=== PATIENT | female | born 2000 | race Caucasian/White ===

== ENCOUNTER 2019-01-04 09:30 | Inpatient (IN) ==
[2019-01-04] MEDS ORDERED: SODIUM CHLORIDE 0.9% 1000ML 1,000 ML IV ONE (09:55)
--- NOTE | 2019-01-04 10:13 | Emergency Department Note ---
Entered by Tera Jaeger acting as a scribe for History of Present Illness General Chief complaint: Hyperglycemia Stated complaint: TYPE 1 DIABETIC-SHAKY,VOMITNG,DRY MOUTH Time Seen by Provider: 01/04/19 09:43 Source: patient History of Present Illness Provider complaint: Hyperglycemia Onset (ago): day(s) 1 Location: abdomen Severity: similar to prior episodes Pain Consistency: + other (Episodic) Maximum Pain Intensity: 0 Relieved By: + none Exacerbated By: + none Associated symptoms: + nausea/vomiting and + other (Dry mouth); no fever/chills The patient is a 18 year old female who presents to the Emergency Room with complaints of a hyperglycemic episode that occurred this morning when the patient woke up. The patient is a type 1 diabetic and her tubing was kinked last night for about 5 hours resulting in her not receiving adequate insulin for that time. When she first woke up this morning her sugar was 560 but after she fixed her tubing her sugars came down to 460. The patient states she set up her bolus wizard based on her blood sugar but her pump read "no active insulin" so she never received the dosage. The patient currently has a dry mouth and has been vomiting anything she tries to drink today. She denies any fevers or back pain. She notes that she got her period 2 weeks early, but contributes it to stress from finals week. Home Medications Home Medications Medication Instructions Recorded Confirmed Type aspirin 325 mg PO UD 01/04/19 01/04/19 History cholecalciferol (vitamin D3) 0 unit PO HS 01/04/19 01/04/19 History [Vitamin D3] doxycycline hyclate 100 mg PO BID 01/04/19 01/04/19 History insulin aspart U-100 [Novolog 0 unit CONTINUOUS SUBCUTANEOUS 01/04/19 01/04/19 History U-100 Insulin aspart] INFUSION .PUMP levothyroxine 50 mcg PO QAM 01/04/19 01/04/19 History multivitamin 1 tab PO HS 01/04/19 01/04/19 History Allergies Allergy/AdvReac Type Severity Reaction Status Date / Time No Known Allergies Allergy Unverified 01/04/19 11:34 Past Med/Surg History Medical History Acne Hypothyroidism Type 1 diabetes mellitus Social History Preferred Language: [place] Islander Communication Ability: Effective [employer]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 and A total of 10 systems reviewed and were otherwise negative Physical Exam Vital Signs Vital Signs - 24 hr 01/04/19 09:33 01/04/19 13:04 Temperature 37.0 C Temperature Source Oral Sepsis Recent Fever Within 48 Hours No Sepsis New/Unexplained Change in Mental Status No Sepsis Action Taken by Nursing No Action Required Pulse Rate 127 H Pulse Rate [Left Finger] 110 H Respiratory Rate 17 18 Respiratory Effort / Characteristics Non-Labored Respiratory Depth Normal Normal Respiratory Pattern Regular Blood Pressure 148/94 H Blood Pressure [Left Arm] 155/92 H Blood Pressure Mean 112 Blood Pressure Mean [Left Arm] 113 Blood Pressure Position Sitting Pulse Oximetry 97 100 Oxygen Delivery Method Room Air Room Air General: Non-ill appearing young female in no acute distress. HEENT: Normal cephalic atraumatic. Pupils are equal round and reactive to li ght. Extraocular movements are intact. Oropharynx is pink with moist mucous membranes. No swelling of the mouth lips or tongue. Neck: Supple with a midline trachea. No meningeal signs or stiffness, no JVD or bruits. No Stridor. Chest: Clear to auscultation bilaterally. No wheezes or rhonchi. No increased work of breathing. Heart: regular rate and rhythm. Abdomen: Soft nontender, nondistended without rebound guarding or rigidity. Insulin pump sites on the right and left. Left one is new. Extremities: No cyanosis clubbing or edema. No calf tenderness or assymetry Spine/Back. Non tender to palpation. No CVA tenderness Skin: Good turgor without rashes. Neurologic exam: Cranial nerves two through 12 are intact. Motor and sensation are intact and symmetrical throughout. Course 0945: The patient was evaluated in room B04B, and a complete history and physical examination were performed. 1025: I checked on the patient and she was just getting her IV placed. 1128: I spoke to Dr. Felder - [facility] Hospitalist about the patient case and he is going to evaluate her. 1205: I spoke to the patient and her mother about the situation. They are now willing to have the patient admitted. Dr. Felder is going to accept her for further evaluation. Consultations Consultation #1: I spoke to Dr. Felder - [facility] Hospitalist about the patient case and he is going to evaluate her. Time: 11:28 Administered Medications Discontinued Medications Sodium Chloride (Nss 1000ml) 1,000 mls @ 999 mls/hr IV .Q1H1M ONE Stop: 01/04/19 10:55 Last Infusion: 01/04/19 12:15 Dose: 0 mls/hr Documented by: [id number] Admin: 01/04/19 10:32 Dose: 999 mls/hr Documented by: [id number] Sodium Chloride (Nss 1000ml) 1,000 mls @ 500 mls/hr IV .Q2H SUZETTE Stop: 01/04/19 13:59 Last Admin: 01/04/19 12:16 Dose: 500 mls/hr Documented by: [id number] Ondansetron HCl (Zofran) 4 mg IV NOW STA Stop: 01/04/19 10:42 Last Admin: 01/04/19 10:57 Dose: 4 mg Documented by: [id number] Medical Decision Making Differential Diagnosis Differential Diagonsis: Hyperglycemia, DKA, Electrolyte abnormality, and Metabolic abnormality, amongst others. Medical Records Attestation: I reviewed the patient's medical records. Home Medications Current Medication List: was personally reviewed by me Laboratory Data Attestation: I reviewed the patient's lab results. Result diagrams: 01/04/19 10:33 01/04/19 10:33 Lab Results 01/04/19 01/04/19 01/04/19 Range/Units 09:37 10:33 10:33 WBC 16.82 H (4.8-10.8) K/uL RBC 5.08 (4.2-5.4) M/uL Hgb 15.9 (12.0-16.0) g/dL Hct 43.9 (37-47) % MCV 86.4 (80-100) fL MCH 31.3 (25-34) pg MCHC 36.2 H (32-36) g/dL RDW Std Deviation 37.6 (36.4-46.3) fL RDW Coeff of Yuly 11.8 (11.5-14.5) % Plt Count 362 (130-400) K/uL MPV 9.8 (7.4-10.4) fL Immature Gran % (Auto) 0.3 % Neut % (Auto) 88.7 % Lymph % (Auto) 8.2 % [place] % (Auto) 2.6 % Eos % (Auto) 0.0 % Baso % (Auto) 0.2 % Immature Gran # (Auto) 0.05 H (0.00-0.02) K/uL Neut # (Auto) 14.92 H (1.4-6.5) K/uL Lymph # (Auto) 1.38 (1.2-3.4) K/uL [place] # (Auto) 0.44 (0.11-0.59) K/uL Eos # (Auto) 0.00 (0-0.5) K/uL Baso # (Auto) 0.03 (0-0.2) K/uL Sodium 137 (136-145) mmol/L Potassium 4.1 (3.5-5.1) mmol/L Chloride 104 (98-107) mmol/L Carbon Dioxide 12 L (21-32) mmol/L Anion Gap 22.0 H (3-11) BUN 16 (7-18) mg/dl Creatinine 1.07 (0.6-1.2) mg/dl Est Cr Clr Drug Dosing 76.0 ml/min Est GFR ( Amer) 86.5 Est GFR (Non-Af Amer) 74.7 BUN/Creatinine Ratio 15.0 (10-20) Glucose 363 H* (70-99) mg/dl POC Glucose 411 H* (70-99) Calcium 9.8 (8.5-10.1) mg/dl Total Bilirubin 0.6 (0.2-1) mg/dl AST 74 H (15-37) U/L ALT 73 (12-78) U/L Alkaline Phosphatase 192 H (45-117) U/L Total Protein 8.9 H (6.4-8.2) gm/dl Albumin 4.7 (3.4-5.0) gm/dl Globulin 4.2 H (2.5-4.0) gm/dl Albumin/Globulin Ratio 1.1 (0.9-2) Beta-Hydroxybutyric Acd 59.19 H (0.2-2.81) mg/dl HCG, Qual (Negative) 01/04/19 01/04/19 Range/Units 10:33 12:48 WBC (4.8-10.8) K/uL RBC (4.2-5.4) M/uL Hgb (12.0-16.0) g/dL Hct (37-47) % MCV (80-100) fL MCH (25-34) pg MCHC (32-36) g/dL RDW Std Deviation (36.4-46.3) fL RDW Coeff of Yuyl (11.5-14.5) % Plt Count (130-400) K/uL MPV (7.4-10.4) fL Immature Gran % (Auto) % Neut % (Auto) % Lymph % (Auto) % [place] % (Auto) % Eos % (Auto) % Baso % (Auto) % Immature Gran # (Auto) (0.00-0.02) K/uL Neut # (Auto) (1.4-6.5) K/uL Lymph # (Auto) (1.2-3.4) K/uL [place] # (Auto) (0.11-0.59) K/uL Eos # (Auto) (0-0.5) K/uL Baso # (Auto) (0-0.2) K/uL Sodium (136-145) mmol/L Potassium (3.5-5.1) mmol/L Chloride (98-107) mmol/L Carbon Dioxide (21-32) mmol/L Anion Gap (3-11) BUN (7-18) mg/dl Creatinine (0.6-1.2) mg/dl Est Cr Clr Drug Dosing ml/min Est GFR ( Amer) Est GFR (Non-Af Amer) BUN/Creatinine Ratio (10-20) Glucose (70-99) mg/dl POC Glucose 226 H (70-99) Calcium (8.5-10.1) mg/dl Total Bilirubin (0.2-1) mg/dl AST (15-37) U/L ALT (12-78) U/L Alkaline Phosphatase (45-117) U/L Total Protein (6.4-8.2) gm/dl Albumin (3.4-5.0) gm/dl Globulin (2.5-4.0) gm/dl Albumin/Globulin Ratio (0.9-2) Beta-Hydroxybutyric Acd (0.2-2.81) mg/dl HCG, Qual Negative (Negative) Blood Pressure Blood Pressure Findings: Elevated blood pressure Blood Pressure Disposition: further management by hospitalist MDM Narrative This patient comes in as described above. She is a type I diabetic and has a insulin pump. Last night her pump got kinked and her sugar went high it was not functioning for about 5 hours she put a new site in today and her basal rates go and she thought she gave herself a bolus but on her pump it says there is 0 units of active insulin her blood sugar was 411 here. She did give herself a bolus after putting this in her bolus wizard. IV access established was hydrated normal saline and multiple blood testing was obtained. She was reassessed frequently. She did have a fair amount of nausea and was given Zofran. She is feeling a lot better after having 1 L normal saline bolus. I was concerned however that she does have a low CO2 and anion gap and was found to be in DKA. I do think she needs to be observed overnight and have gentle hydration. I have consulted Dr. Felder who saw the patient ER and will admit/observe her for these measures. Impression & Plan DKA (diabetic ketoacidoses), Hyperglycemia, Vomiting Discharge Plan Visit Data Chief Complaint: Hyperglycemia Stated Complaint: TYPE 1 DIABETIC-SHAKY,VOMITNG,DRY MOUTH ED Provider: Manuel Saba Discharge Problem: DKA (diabetic ketoacidoses), Hyperglycemia, Vomiting Patient Disposition: Being Evaluated by Hospitalist Discharge Instructions Interventions: ED Discharge Assessment Last Done: 01/04/19 13:34 Forms Stand Alone Forms: [facility] Prescriptions Prescriptions: No Action multivitamin Tablet 1 tab PO HS RF: 0 aspirin 325 mg Tablet 325 mg PO UD RF: 0 Novolog U-100 Insulin aspart 100 unit/mL solution continuous subcutaneous infusion .PUMP RF: 0 levothyroxine 50 mcg tablet 50 mcg PO QAM RF: 0 doxycycline hyclate 100 mg tablet 100 mg PO BID RF: 0 cholecalciferol (vitamin D3) [Vitamin D3] 1,000 unit Capsule PO HS RF: 0 Referrals Referrals: PCP,NO [Primary Care Provider] - Discharge Problem: DKA (diabetic ketoacidoses) Qualifiers: Diabetes mellitus type: type 1 Diabetes mellitus complication detail: without coma Qualified Code(s): E10.10 - Type 1 diabetes mellitus with ketoacidosis without coma Vomiting Qualifiers: Vomiting type: unspecified Vomiting Intractability: non-intractable Nausea presence: with nausea Qualified Code(s): R11.2 - Nausea with vomiting, unspecified The scribe's documentation has been prepared under my direction and personally reviewed by me in its entirety. I confirm that the note above accurately reflects all work, treatment, procedures, and medical decision making performed by me.
[2019-01-04 10:41] LABS: Hematocrit (blood only) 43.9 % (37-47); Hemoglobin 15.9 g/dL (12.0-16.0); Mean Corpuscular Hgb Conc 36.2 g/dL (32-36); Mean Corpuscular Volume 86.4 fL (80-100); Mean Platelet Volume 9.8 fL (7.4-10.4); Platelet Count 362 K/uL (130-400); RDW Coefficient of Variation 11.8 % (11.5-14.5); RDW Standard Deviation 37.6 fL (36.4-46.3); Red Blood Count 5.08 M/uL (4.2-5.4); White Blood Count 16.82 K/uL (4.8-10.8)
[2019-01-04] MEDS ORDERED: ONDANSETRON INJ 2 MG/ML 2 ML VIAL IV STA (10:41)
[2019-01-04 10:59] LABS: Basophils # (auto) 0.03 K/uL (0-0.2); Basophils % (auto) 0.2 %; Immature Granulocytes # (auto) 0.05 K/uL (0.00-0.02); Immature Granulocytes % (auto) 0.3 %; Lymphocytes # (auto) 1.38 K/uL (1.2-3.4); Lymphocytes % (auto) 8.2 %; Monocytes # (auto) 0.44 K/uL (0.11-0.59); Monocytes % (auto) 2.6 %; Neutrophils # (auto) 14.92 K/uL (1.4-6.5); Neutrophils % (auto) 88.7 %
[2019-01-04 11:06] LABS: Albumin Globulin Ratio 1.1 (0.9-2); Albumin Level 4.7 gm/dl (3.4-5.0); Bilirubin,Total 0.6 mg/dl (0.2-1); Calcium 9.8 mg/dl (8.5-10.1); Est GFR (African American) 86.5; Est GFR (Non-African American) 74.7; Globulin 4.2 gm/dl (2.5-4.0); Potassium 4.1 mmol/L (3.5-5.1); Total Protein 8.9 gm/dl (6.4-8.2)
[2019-01-04 11:16] LABS: Pregnancy Test, Serum Negative (Negative)
[2019-01-04 11:44] LABS: Beta-Hydroxybutyrate 59.19 mg/dl (0.2-2.81)
[2019-01-04] MEDS ORDERED: SODIUM CHLORIDE 0.9% 1000ML 1,000 ML IV SCH ×2 (12:00→14:28)
--- NOTE | 2019-01-04 12:52 | History & Physical Report ---
Date of Service January 04, 2019 Assessment & Plan (1) Type 1 diabetes mellitus: Patient presented in DKA with an anion gap of 22 bicarb of 12 and beta hydroxybutyric acid of 59.. This appears to work with the patient working to continue her basal rate on her insulin pump have a correction factor by subcutaneous insulin continue hydration and follow her electrolytes and blood glucoses carefully. If you can close her gap without instituting a formal insulin drip we will do that. Certainly need to watch her anion gap with regard to the need for dextrose infusion and also watch her potassium as shift will occur after her acidosis corrects. Patient is agreeable to this as she was trying to avoid hospital stay at all cost. I personally spoke to the glycemic pharmacist for 10 to 15 minutes to try to determine a plan of care and will be a glycemic pharmacist at her nursing unit which she is will be apprised of the situation and continue to aggressively monitor with every 2 hours glucose checks and either acute 2 to 4-hour chemistry checks (2) Hypothyroidism: Maintaining her Synthroid at 50 mg a day (3) Acne: We are currently holding her doxycycline given causes some stomach upset but this can be resumed when she is released History of Present Illness Primary Care Provider: NO PCP 18-year-old female presents with nausea vomiting abdominal pain. She is a type I diabetic. She noticed that her insulin pump site become dislodged overnight. She replaced the pump site this morning however she presented with the above symptoms. She has a glucose of 400 she is an acidosis with anion gap of 22 and a bicarb of 12. In the ER there is prolonged discussion between myself and her mother the ER doctor regarding whether she should come into the hospital or not initially she refused to come in the hospital now she is in agreement to come to the hospital. Probable the 45 minutes were spent in various discussions regarding this prior to even writing any admitting orders. Decision will be to have her brought into our facility keep her on her basal rate which is 0.975 units an hour. We will employ sliding scale with correction factor of 40/140 and her carb ratio of 8 with every 2 hour blood glucose checks. Currently in the process of drawing an additional electrolyte panel. She will be hydrated with normal saline at this point in time and she did receive 1.5 L of fluid in the ER. Allergies Allergy/AdvReac Type Severity Reaction Status Date / Time No Known Allergies Allergy Unverified 01/04/19 11:34 Home Medications Home Medications Medication Instructions Recorded Confirmed Type aspirin 325 mg PO UD 01/04/19 01/04/19 History cholecalciferol (vitamin D3) 0 unit PO HS 01/04/19 01/04/19 History [Vitamin D3] doxycycline hyclate 100 mg PO BID 01/04/19 01/04/19 History insulin aspart U-100 [Novolog 0 unit CONTINUOUS SUBCUTANEOUS 01/04/19 01/04/19 History U-100 Insulin aspart] INFUSION .PUMP levothyroxine 50 mcg PO QAM 01/04/19 01/04/19 History multivitamin 1 tab PO HS 01/04/19 01/04/19 History Past Med/Surg History Medical History Acne Hypothyroidism Type 1 diabetes mellitus Social History Preferred Language: Martiniquais Feels Safe at Home: Yes Smoking Status: Never smoker Hx Alcohol Use: Yes (occasional) Hx Substance Use: Yes Review of Systems Review of Systems: ROS: well nourished well developed. No double vision blurry vision No problems with speech or swallowing No palpitations, chest pain or pressure No Wheezing or breathing issues Abdominal pain diffuse nausea and vomiting no diarrhea No burning urine urine frequency or changes in color No focal joint pain or muscle pain No skin rashes or oral lesions, is treated for acne No unusual bruising or bleeding No focused back pain or numbness or loss of strength No changes in memory or confusion Physical Exam Physical Exam: The patient appeared well nourished and normally developed. Vital signs as documented. Head exam is unremarkable. normocephalic, atraumatic Neck is without jugular venous distension, thyromegaly, or lymphademopathy Lungs are clear to auscultation and percussion. Cardiac exam reveals Rhythm is regular. First and second heart sounds normal. Abdominal exam reveals normal bowel sounds, no masses, no organomegaly Extremities are nonedematous and both pedal pulses are present Neurologic exam is A&Ox3, no focal deficits, strength is equal bilateral Psychologically seems neither anxious or depressed Skin is warm Dry without bruises as a faint acne on her face Of note her exam is benign this is after she is been fluid resuscitated and her insulin pump is been in place Results & Data Vital Signs (Past 12 Hours) Vital Signs Temp Pulse Resp BP Pulse Ox 01/04/19 09:33 37.0 C 127 H 17 148/94 H 97
[2019-01-04] MEDS ORDERED: ONDANSETRON INJ 2 MG/ML 2 ML VIAL IV PRN (14:28)
[2019-01-04] MEDS ORDERED: NON-FORMULARY MEDICATION (Insulin Aspart U-100 0 UNITS) continuous subcutaneous infusion SCH (14:28)
[2019-01-04] MEDS ORDERED: ACETAMINOPHEN 325 MG TAB PO PRN (14:28)
[2019-01-04] MEDS ORDERED: PHARMACY GLYCEMIC MGMT CONSULT PRN (14:37)
[2019-01-04] MEDS ORDERED: DEXTROSE 50% 50 ML SYRINGE IV PRN (14:45)
[2019-01-04] MEDS ORDERED: GLUCOSE 40% GEL 15 GM TUBE PO PRN (14:45)
[2019-01-04] MEDS ORDERED: GLUCAGON FOR INJ 1 MG VIAL IM PRN (14:45)
[2019-01-04] MEDS ORDERED: GLUCOSE 10 TABS/TUBE PO PRN (14:45)
[2019-01-04] MEDS ORDERED: CARBOHYDRATES FOR HYPOGLYCEMIA PO PRN (14:45)
[2019-01-04 15:31] LABS: Calcium 8.5 mg/dl (8.5-10.1); Creatinine Clr Calc Pharmacy 99.2 ml/min; Est GFR (African American) 119.4; Potassium 4.4 mmol/L (3.5-5.1)
[2019-01-04] MEDS ORDERED: NORMOSOL-R 1,000 ML IV SCH (16:00)
[2019-01-04] MEDS: INSULIN ASPART 100 UNITS/ML 3 ML PEN SC SCH ×2 (17:00→20:18)
[2019-01-04] MEDS: NovoLOG INSULIN PUMP SCH ×2 (17:00→20:19)
--- NOTE | 2019-01-04 19:23 | Discharge Summary ---
Date of Service January 04, 2019 Admission HPI Per Admitting Provider 18-year-old female presents with nausea vomiting abdominal pain. She is a type I diabetic. She noticed that her insulin pump site become dislodged overnight. She replaced the pump site this morning however she presented with the above symptoms. She has a glucose of 400 she is an acidosis with anion gap of 22 and a bicarb of 12. In the ER there is prolonged discussion between myself and her mother the ER doctor regarding whether she should come into the hospital or not initially she refused to come in the hospital now she is in agreement to come to the hospital. Probable the 45 minutes were spent in various discussions regarding this prior to even writing any admitting orders. Decision will be to have her brought into our facility keep her on her basal rate which is 0.975 units an hour. We will employ sliding scale with correction factor of 40/140 and her carb ratio of 8 with every 2 hour blood glucose checks. Currently in the process of drawing an additional electrolyte panel. She will be hydrated with normal saline at this point in time and she did receive 1.5 L of fluid in the ER. Principal Diagnosis Diabetic ketoacidosis Discharge Exam I reevaluated the patient in the evening approximately 7 PM she was in good condition and on gap has closed, she is eating dinner to be discharged in the c ompany of her mother Constitutional well developed and average body habitus Eyes no conjunctival abnormality and no scleral abnormality Neck normal visual inspection and trachea midline Respiratory normal respiratory effort; no respiratory distress Auscultation: lungs clear to auscultation bilaterally Cardiovascular RRR, no murmur, no edema Gastrointestinal (Abdomen) normal bowel sounds, soft, nontender, no hepatosplenomegaly Musculoskeletal no cyanosis or clubbing, extremities motor strength 5/5 Discharge Data Allergies Allergy/AdvReac Type Severity Reaction Status Date / Time No Known Allergies Allergy Unverified 01/04/19 11:34 Consultations 01/04/19 11:28 ED Decision to Admit Stat 01/04/19 14:28 Consult Case Management - Discharge Planning Routine Hospital Course (1) Type 1 diabetes mellitus: Patient presented in DKA with an anion gap of 22 bicarb of 12 and beta hydroxybutyric acid of 59.. I personally spoke to the glycemic pharmacist for 10 to 15 minutes to try to determine a plan of care and will be a glycemic pharmacist at her nursing unit which she is will be apprised of the situation and continue to aggressively monitor with every 2 hours glucose checks and either acute 2 to 4-hour chemistry checks Closed anion gap and reinstituted her pump with her tract infection ratio she is doing quite well she will be discharged in company of her family (2) Hypothyroidism: Maintaining her Synthroid at 50 mg a day (3) Acne: We are currently holding her doxycycline given causes some stomach upset but this can be resumed when she is released Total Time Total Time Spent Total Time Spent (In Minutes): Less than 30 minutes was used to discharge this patient Discharge Plan Discharge Items Patient Disposition: Home - Self-Care Reason For Visit: DKA Discharge Diagnosis: DKA Discharge Goals: Improve disease control Activity: Resume your previous activity Non-emergency contact: Primary Care Provider Call non-emergency contact if: you have any medication questions Follow-up/Referrals: PCP,NO [Primary Care Provider] - Diet: Carb Count or DM1 Addtl Provider Instructions: please check you blood glucose and assure your pump is attached and functional Prescriptions: Continued multivitamin Tablet 1 tab PO HS RF: 0 aspirin 325 mg Tablet 325 mg PO UD RF: 0 Novolog U-100 Insulin aspart 100 unit/mL solution continuous subcutaneous infusion .PUMP RF: 0 levothyroxine 50 mcg tablet 50 mcg PO QAM RF: 0 doxycycline hyclate 100 mg tablet 100 mg PO BID RF: 0 cholecalciferol (vitamin D3) [Vitamin D3] 1,000 unit Capsule PO HS RF: 0 Stand-Alone Forms: [facility] Discharge Orders: Discharge Order (Routine); Ordered 01/04/19 Ordered By: Benjamin Felder Admission Data Admit Date/Time: 01/04/19 12:38 Attending Provider: Benjamin Felder Admit Provider: Benjamin Felder Primary Care Provider: PCP,NO Other Providers: Benjamin Felder Service: Telemetry
[2019-01-04] MEDS ORDERED: MULTIVITAMIN TAB PO SCH (21:00)
[2019-01-05] MEDS ORDERED: LEVOTHYROXINE SODIUM 50 MCG TABLET PO SCH (06:30)
== END 2019-01-04 21:46 | disposition home or self-care (01) | DRG 919 ==
LOC: ED 09:30 → 2S 12:38